=== PATIENT | male | born 1955 | race Caucasian/White ===

== ENCOUNTER 2018-05-25 11:49 | Outpatient (REF) | payer MEDICAID, SELFPAY ==
[2018-05-25 21:34] LABS: Abs Immature Grans 0.06 k/cumm (0.0-0.09); Absolute Basophil Count 0.05 k/cumm (0.0-0.2); Absolute Eosinophil Count 0.31 k/cumm (0.0-0.7); Absolute Lymphocyte Count 1.92 k/cumm (1.2-3.4); Absolute Monocyte Count 1.37 k/cumm (0.11-0.7); Absolute Neutrophil Count 5.67 k/cumm (1.2-6.7); Basophils % 0.5; Eosinophils % 3.3; HCT 44.4 % (40.0-50.0); HGB 14.9 g/dL (13.5-17.5); Immature Grans % 0.6; Lymphocytes % 20.5; Mean Corp. HGB Concentration 33.6 g/dL (32.0-36.0); Mean Corpuscular Hemoglobin 28.9 pg (27.0-33.0); Mean Platelet Volume 10.7 fL (8.0-11.0); Monocytes % 14.6; Neutrophils % 60.5; Platelet Count 224 x1000/uL (130-400); RBC 5.16 m/cumm (4.50-6.00); RBC Distribution Width 13.1 % (11.8-14.1); White Blood Cell Count 9.38 k/cumm (4.4-10.8)
[2018-05-25 21:48] LABS: ALT 23 U/L (12-78); AST 23 U/L (15-37); Alkaline Phosphatase 128 U/L (46-116); Anion Gap 11.2 mmol/L (3-11); BUN 5 mg/dL (7-18); Bilirubin, Total 0.4 mg/dL (0.2-1.0); CO2 25.8 mmol/L (21.0-32.0); CREATININE 0.81 mg/dL (0.70-1.30); Chloride 103 mmol/L (98-107); Glucose 90 mg/dL (70-100); Magnesium 1.7 mg/dL (1.8-2.4); Potassium 4.1 mmol/L (3.5-5.1); Sodium 140 mmol/L (136-145); Total Protein 7.6 g/dL (6.4-8.2)
== END 2018-05-25 11:50 ==
LOC: NCHCN 11:49
PROVIDERS: PCP Nurse Practitioner; Visit Provider Nurse Practitioner
DX: F10.21 Alcohol dependence, in remission (principal); E83.42 Hypomagnesemia
CPT/HCPCS: 80053; 83735; 85025

== ENCOUNTER 2018-05-30 01:23 | Outpatient (CLI) | payer MEDICAID, SELFPAY ==
--- NOTE | 2018-05-30 08:52 | DI.REPORT_ITS ---
SYMPTOM/DIAGNOSIS: BACK PAIN, M54.9 LUMBAR SPINE: There is a moderate levoscoliosis centered at L3-4. There is asymmetric narrowing of the disc spaces on the right side of L3-4 and L4-5. No compression fracture, spondylolysis or spondylolisthesis seen. End plate osteophytes are noted greatest at L4-5 on the right. IMPRESSION: Degenerative changes and scoliosis.
== END 2018-05-30 01:24 ==
PROVIDERS: PCP Nurse Practitioner; Visit Provider Nurse Practitioner
DX: M54.5 Low back pain (principal); M47.896 Other spondylosis, lumbar region
CPT/HCPCS: 72110

== ENCOUNTER 2018-06-07 13:35 | Outpatient (RCR) | payer MEDICAID, SELFPAY ==
--- NOTE | 2018-06-07 10:40 | IE_ITS ---
Date: June 07, 2018 Referring: Sara Cook NP M.D. Diagnosis: back pain P.T. Diagnosis: difficulty changing positions SUBJECTIVE: History of Present Illness: The patient describes himself as a disabled individual. Has been disabled for the past 15 years, mainly due to back pain. He formally worked in construction. He states the back pain is fairly centralized. It usually occurs more often in the standing position than in the sitting position, or as he describes if he has been on his feet too long. He has no numbness or weakness through the legs that he can recall. Pain tends to stay fairly centralized. It does not tend to radiate down through the legs. No bowel or bladder changes reported. No difficulty with unexplained weight loss. He states he has actually gained a little bit of weight. Pain Rating: Currently 2/10 and at it's worst 8/10. Prior Level of Function: Unrestricted. Current Level of Function: Limited to a half hour of standing and about a half mile of ambulation. Previous Treatment: N/A Social: He lives in [place], [place] by himself, but family live nearby. Comorbidities: Chronic back pain and a hip fracture last year Medications: N/A Quality of Life: __[x]__ Good Standardized Measures: He failed to accurately complete a MOLBPQ. This may be completed at subsequent visits. OBJECTIVE: Posture: In standing, the patient demonstrates a notable anterior pelvic tilt and a moderate accumulation of adipose tissue in the belly. Gait: Moderately antalgic with reduced stance time through the right LE. Palpation: He is tender to palpation through the lumbar paraspinals bilaterally and through the quadratus lumborum bilaterally, mainly in the distribution of L1 through L3. A SFMA Top Tier Assessment was completed; dysfunctional non painful patterns with cervical spine motion, UE1, UE 2, multi segmental rotation and single leg stance dysfunctional painful patterns through arms down/deep squat, multi segmental flexion and multi segmental extension ROM: Multi segmental flexion mildly painful when approaching end range, but full motion. Multi segmental extension limited to 25% of available motion with compensation through the hips and with knee flexion. Hip flexion is WNL bilaterally. Hip internal rotation 30 right; 35 left. Hip external rotation 40 bilaterally. Hip abduction 45 bilaterally. Knee ROM 0 extension bilaterally and 130 flexion bilaterally. Strength: Intrinsic core strength is low as demonstrated by a stabilized SLR improving hip flexion vs. unstable SLR by 10 of hip flexion. Hip flexion 4+/ 5 bilaterally, quadriceps 5/5, hamstrings 5/5, dorsi flexion 5/5 and plantar flexion 5/5. Glute medius 4-/5 bilaterally. Neuro: Patient intact to light touch in sensation through LE dermatomes. Motor control appears intact through associated myotomes. Patient demonstrates appropriate proprioception and kinestatic awareness. Special Tests: Quadrant, SLR and slump testing (-) for symptoms of radiation or radiculopathy. SLR is limited by hamstring extensibility to 60 . Antonio test and modified Antonio test are both (+). Treatment: IE: 32155 x1 Patient Education: Initial evaluation and assessment of functional mobility, as well as training in a formal exercise program. The patient demonstrated verbal acknowledgement and technique demonstration. Direct treatment time: 60 minutes ASSESSMENT: Patient is a 62-year-old male with a history of chronic health conditions affecting his function, most notably with back pain, referred for PT services with the diagnosis of LBP. Patient presents with clinical signs and symptoms consistent with mechanical derangement of the lumbar spine, as demonstrated by the following impairment level findings: 1) postural deficits with anterior pelvic tilt 2) weakened intrinsic core strength 3) extensibility issues through the hamstrings and anterior chain musculature Impairments are contributing to the following functional limitations: 1) difficulty walking greater than half a mile 2) difficulty standing for longer than half an hour Patient is assessed as: __x__ Low 77842 complexity, based on the following: History: (list): chronic back pain and a hip fracture Examination: (list): (+) Antonio test, hamstring extensibility issues, decreased strength through the intrinsic core, postural deficits with anterior pelvic tilt Presentation: Stable Decision-Making: Low complexity as the patient is still able to perform most of his daily chores and activities, he just performs them in block intervals. ____ Patient requires skilled PT intervention to remediate the above functional limitations to return to: __x__ Premorbid level of function Prognosis: __x__ Good As evidence suggests improvement in functional mobility with compliancy to a detailed HEP tailored to his diagnosis, and follow through with P.T. intervention. STG: __2__ weeks. 1) patient independent with HEP both verbally and with ideal technique demonstration LTG: __6__ weeks. 1) patient able to walk up to 1 mile within 18 minutes for normalized community required ambulation distance and ability 2) patient able to stand for up to 1 hour for better functional capacity through home chore activity and involvement PLAN: Patient to be seen 2x per week, for 6 weeks, adjusting frequency of visits per patient symptoms and response to treatment. Treatment to include: Manual therapy - 21379 - enhancement of muscle extensibility and improving joint arthrokinematic Therapeutic exercise - 36762 - providing tactile cues, verbal education and advance movement correctives for establishing muscle symmetry through the core and pelvic girdle and improving cardiovascular conditioning and stamina Ultrasound (20008) and estim (51275) will be available for pain modulation as necessary. The patient will be monitor for compliancy of HEP, and his status will be updated accordingly. POC to be modified as symptoms dictate. Thank you for this referral. Please do not hesitate to contact me with any questions or concerns regarding this patient's plan of care.
== END 2018-06-09 23:59 | disposition home or self-care (01) ==
LOC: PT 13:35
PROVIDERS: PCP Nurse Practitioner; Referring Provider Nurse Practitioner; Visit Provider Nurse Practitioner
DX: M54.5 Low back pain (principal); M53.86 Other specified dorsopathies, lumbar region
CPT/HCPCS: 97161

== ENCOUNTER 2018-06-26 11:34 | Outpatient (REF) | payer MEDICAID, SELFPAY | END 2018-06-26 11:54 | LOC: NCHCN 11:34 | PROVIDERS: PCP Nurse Practitioner; Visit Provider Nurse Practitioner | DX: E83.42 Hypomagnesemia (principal) | CPT/HCPCS: 83735 ==

== ENCOUNTER 2018-12-06 11:36 | Outpatient (REF) | payer MEDICAID, SELFPAY ==
--- NOTE | 2018-12-06 10:30 | SKI_PTH ---
PATIENT: DOMINICK BATES LOC: [facility] U#:[id number] AGE/SX: 63/M ROOM: RE12/06/[address]: Sara Cook : 1955 BED: DIS: 12/06/2018 SPEC #: [id number] RECD: 12/07/18 12:50 STATUS: AUDI REKourtney #: [id number] MARTÍN: 12/06/18 10:[address]: Sara Cook DEPT: Surgical Specimen RECD BY: Thais Gaviria Tissues: 1 - SKIN BIOPSY(SHAVE/PUNCH) Procedures: SKIN LEVEL 4 SPECIAL STAIN 1 Comments: [id number]
== END 2018-12-06 11:56 ==
LOC: NCHCN 11:36
PROVIDERS: PCP Nurse Practitioner; Visit Provider Nurse Practitioner
DX: L30.8 Other specified dermatitis (principal)
CPT/HCPCS: 88305; 88312